=== PATIENT | male | born 1950 | race Caucasian/White ===

== ENCOUNTER → 2019-03-31 | Outpatient (CLI) | payer MEDICARE ==
--- NOTE | 2019-03-31 13:16 | RAD ---
EXAM: CT CHEST low dose WITHOUT CONTRAST History: Cigarette smoking, screening TECHNIQUE: Helical CT images of the chest are obtained without IV contrast. The chest was scanned from apices to bases. Reformatted sagittal and coronal images were obtained and reviewed. Exposure: One or more of the following individualized dose reduction techniques were utilized for this examination: 1. Automated exposure control 2. Adjustment of the mA and/or kV according to patient size 3. Use of iterative reconstruction technique FINDINGS: There is mild paraseptal emphysematous changes identified in the bilateral upper lobes. There is 4 mm nodule identified in the right lower lobe of the lung laterally. Faint groundglass airspace opacity identified in the right upper lobe of the lung abutting the pleura. No evidence of pleural effusion or pneumothorax. Minimal atelectasis identified in the left lung base. Visualized noncontrasted liver, spleen, adrenals grossly appears unremarkable. There is a 6 mm calcification or calculus identified in the right kidney. Moderate degenerative changes thoracic spine. Mild coronary artery calcifications. IMPRESSION: 1. 4 mm solid nodule identified in the right lower lobe of the lung. Follow-up CT is recommended in one year per [facility] criteria. 2. Faint groundglass airspace opacity identified in the right upper lobe of the lung likely atelectasis or infiltrate. 3. 6 mm calcification or calculus identified in the right kidney. Electronically signed by: Luis Antonio Olivier MD (03/31/2019 1:14 PM) [id number]
== END | disposition home or self-care (01) ==
LOC: US 15:53
PROVIDERS: ATTEND Family Medicine
DX: Z12.2 Encounter for screening for malignant neoplasm of respiratory organs (principal); J43.9 Emphysema, unspecified; R91.1 Solitary pulmonary nodule; J98.11 Atelectasis; I25.10 Atherosclerotic heart disease of native coronary artery without angina pectoris; M47.814 Spondylosis without myelopathy or radiculopathy, thoracic region; Z87.891 Personal history of nicotine dependence
CPT/HCPCS: 76700; G0297